=== PATIENT | female | born 1985 | race American Indian/Alaskan Native ===

== ENCOUNTER 2019-03-19 12:11 | Emergency (ER) | payer SELFPAY ==
[2019-03-19 12:23] VITALS: BP 100/67
--- NOTE | 2019-03-19 12:30 | Event Note ---
ED Screening Note Date of service: 03/19/19 Time: 12:24 ED Screening Note: This is a 33 y.o. F. that presents to the ER with multiple abrasions, back pain, and left ankle pain s/p falling down stairs. Patient states she fell down 4-5 concrete stairs 2-3 hours [employer]. This was a witnessed fall by family. Patient sister states she was out for a few seconds. This initial assessment/diagnostic orders/clinical plan/treatment(s) is/are subject to change based on patients health status, clinical progression and re- assessment by fellow clinical providers in the ED. Further treatment and workup at subsequent clinical providers discretion. Patient/guardian urged not to elope from the ED as their condition may be serious if not clinically assessed and managed. Initial orders include: CT of head and XR thoracic spine
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
--- NOTE | 2019-03-19 13:31 | XRay Report ---
LEFT ANKLE 3 VIEW(S) INDICATION / CLINICAL INFORMATION: ankle swelling pain fall COMPARISON: None available. FINDINGS: BONES / JOINT(S): No acute fracture or subluxation. No significant arthritis. SOFT TISSUES: Moderate anterolateral soft tissue swelling. ADDITIONAL FINDINGS: None. Signer Name: Jakub Williamson MD Signed: 03/19/2019 1:27 PM Workstation Name: [id number]
[2019-03-19] MEDS ORDERED: NORCO 5/325 PO ONE (14:19)
[2019-03-19] MEDS ORDERED: IBUPROFEN PO ONE (14:19)
== END 2019-03-19 14:30 | disposition home or self-care (01) ==
LOC: ED 12:11
DX: S93.402A Sprain of unspecified ligament of left ankle, initial encounter (principal); S00.81XA Abrasion of other part of head, initial encounter; F17.200 Nicotine dependence, unspecified, uncomplicated; Z79.899 Other long term (current) drug therapy; W10.8XXA Fall (on) (from) other stairs and steps, initial encounter; Y93.89 Activity, other specified; Y92.89 Other specified places as the place of occurrence of the external cause; Y99.8 Other external cause status
CPT/HCPCS: 99283